=== PATIENT | female | born 1955 | race Caucasian/White ===

== ENCOUNTER 2017-02-10 01:23 | Inpatient (IN) ==
[2017-01-27 08:33] LABS: HEMOGLOBIN 13.5 g/dL (12.0-16.0); MANUAL DIFF NEEDED? NO
[2017-01-27 08:36] LABS: BILIRUBIN URINE NEGATIVE (NEGATIVE); BLOOD URINE TRACE (NEGATIVE); COLOR YELLOW; GLUCOSE URINE NEGATIVE (NEGATIVE); LEUKOCYTES URINE NEGATIVE (NEGATIVE); NITRITE URINE NEGATIVE (NEGATIVE); PH URINE 5.5; PROTEIN URINE NEGATIVE (NEGATIVE); SP GRAVITY URINE 1.018; TURBIDITY URINE CLEAR (CLEAR); URINE MICRO REVIEW NEEDED? NO; URINE SOURCE CLEAN CATCH; UROBILINOGEN URINE NORMAL (NORMAL)
[2017-01-27 08:38] LABS: UR EPITHELIAL CELLS <10 /HPF (<10); URINE BACTERIA NEGATIVE /HPF; URINE RBC <10 /HPF (<10); URINE WBC <10 /HPF (<10)
[2017-01-27 09:01] LABS: INR 0.92; PROTIME 9.6 Seconds (9.2-11.7); PTT 28.2 Seconds (22.0-36.0)
[2017-01-27 09:13] LABS: POTASSIUM 4.9 mmol/L (3.5-5.1)
--- NOTE | 2017-01-27 09:38 | EKG Report ---
Test Performed on : 01/27/2017 07:33:18 AM Test Reason : JOINT CAMP Blood Pressure : / mmHG Vent. Rate : 060 BPM Atrial Rate : 060 BPM P-R Int : 136 ms QRS Dur : 080 ms QT Int : 398 ms P-R-T Axes : 017 -08 001 degrees QTc Int : 398 ms Normal sinus rhythm. Normal ECG When compared with ECG of 20-JUL-2014 21:57, No significant change was found Confirmed by Claudia DE LA CRUZ, Tulio Pemberton ([id number]) on 01/27/2017 10:07:14 AM
[2017-01-27 11:08] LABS: BASO% 0.9 % (0.0-0.8); EOS# 0.09 X1000 (0.0-0.7); EOS% 1.7 % (0.0-10.0); HEMATOCRIT 39.9 % (37.0-47.0); IMM GRAN# 0.02 X1000 (0.0-0.04); IMM GRAN% 0.4 % (0.0-0.5); LYMPH# 2.14 X1000 (1.2-3.4); LYMPH% 40.5 % (20.5-51.1); MCH 29.3 PG (27-31); MCHC 33.8 g/dL (33-37); MCV 86.6 FL (81-99); MONO# 0.56 X1000 (0.11-0.59); MONO% 10.6 % (1.7-9.3); MPV 9.6 FL (7.4-10.4); NEUT% 45.9 % (42.2-75.2); PLT 274 X1000 (130-400); RBC 4.61 XMIL (4.2-5.4)
[2017-02-10] MEDS ORDERED: COLACE ONE (09:43)
[2017-02-10] MEDS ORDERED: PEPCID ONE (09:43)
[2017-02-10] MEDS ORDERED: REGLAN ONE (09:44)
[2017-02-10] MEDS ORDERED: LYRICA ONE (09:44)
[2017-02-10] MEDS ORDERED: CELEBREX ONE (09:44)
[2017-02-10] MEDS ORDERED: LR 1,000 ML ONE (09:44)
[2017-02-10] MEDS ORDERED: KEFZOL 2 GM/D5W 2 GM/50 ML IVPB ONE (09:45)
[2017-02-10] MEDS ORDERED: VERSED ONE ×2 (09:59→10:35)
[2017-02-10] MEDS ORDERED: DIPRIVAN 1% ONE ×2 (10:00→10:33)
[2017-02-10] MEDS ORDERED: FENTANYL ONE (10:00)
[2017-02-10] MEDS ORDERED: DURAMORPH ONE (10:16)
[2017-02-10] MEDS ORDERED: TORADOL ONE (10:16)
[2017-02-10] MEDS ORDERED: VANCOMYCIN ONE (10:17)
[2017-02-10] MEDS ORDERED: EXPAREL 1.3% ONE (10:17)
[2017-02-10] MEDS ORDERED: MARCAINE 0.25% PF ONE (10:17)
[2017-02-10] MEDS ORDERED: SODIUM CHLORIDE 0.9% ONE (10:17)
[2017-02-10] MEDS ORDERED: NEOSPORIN G.U. IRRIGANT ONE (10:17)
[2017-02-10] MEDS ORDERED: OFIRMEV 1000 MG/ISOTONIC SOLN 1,000 MG/100 ML BOTTLE ONE (10:42)
[2017-02-10] MEDS ORDERED: DECADRON ONE (10:42)
[2017-02-10] MEDS ORDERED: ZOFRAN ONE (10:42)
[2017-02-10] MEDS ORDERED: CYKLOKAPRON 1,000 MG/NS 1,000 MG/100 ML IVPB ONE ×2 (10:46)
[2017-02-10 11:44] LABS: URINE MICRO REVIEW NEEDED? NO; URINE SOURCE CATH
[2017-02-10 11:49] LABS: BILIRUBIN URINE NEGATIVE (NEGATIVE); BLOOD URINE NEGATIVE (NEGATIVE); COLOR YELLOW; GLUCOSE URINE NEGATIVE (NEGATIVE); LEUKOCYTES URINE NEGATIVE (NEGATIVE); NITRITE URINE NEGATIVE (NEGATIVE); PH URINE 5.5; PROTEIN URINE NEGATIVE (NEGATIVE); SP GRAVITY URINE 1.017; TURBIDITY URINE CLEAR (CLEAR); UROBILINOGEN URINE NORMAL (NORMAL)
[2017-02-10 11:50] LABS: UR EPITHELIAL CELLS <10 /HPF (<10); URINE BACTERIA NEGATIVE /HPF; URINE RBC <10 /HPF (<10); URINE WBC <10 /HPF (<10)
[2017-02-10] MEDS ORDERED: NS 1,000 ML ONE (12:55)
--- NOTE | 2017-02-10 13:24 | Diag Imaging Result Doc PS360 ---
EXAM: KNEE 1-2 VIEWS-LEFT HISTORY: post op tka TECHNIQUE: Left knee two views COMMENT: There is been a total knee arthroplasty. There is appropriate alignment. IMPRESSION: Postsurgical change. Electronically signed by Rafal Davila 02/10/2017 1:22 PM
[2017-02-10] MEDS ORDERED: MORPHINE IV PRN (14:45)
[2017-02-10] MEDS ORDERED: MILK OF MAGNESIA PO PRN (14:45)
[2017-02-10] MEDS ORDERED: ZOFRAN IV PRN (14:45)
[2017-02-10] MEDS: XANAX PO SCH (15:18)
[2017-02-10] MEDS: GLUCOPHAGE PO SCH ×2 (15:18→17:43)
[2017-02-10] MEDS: PRINZIDE 20/12.5MG PO SCH (15:18)
[2017-02-10] MEDS: NS 1,000 ML IV SCH (15:20)
[2017-02-10] MEDS: OXY IR PO PRN (16:38)
[2017-02-10] MEDS: TYLENOL PO SCH (17:43)
[2017-02-10] MEDS: KEFZOL 1 GM/D5W 1 GM/50 ML IVPB IV SCH (17:44)
--- NOTE | 2017-02-10 18:38 | OPERATIVE NOTE ---
PROCEDURE DATE: 02/10/2017 PREOPERATIVE DIAGNOSIS: Degenerative osteoarthritis left knee. POSTOPERATIVE DIAGNOSIS: Degenerative osteoarthritis left knee. PROCEDURE: Left total knee arthroplasty with DePuy Attune size 5 narrow posterior stabilized femur, size 5 tibial tray, a 5 mm rotating platform tibial insert, and a 32 mm medialized anatomic patella. SURGEON: Bandar Jane MD. AERONAUTICAL DESIGN ENGINEER: Jazmin Hernandez. SECOND BONER MEAT: Mikey Saravia RN. ANESTHESIA: Spinal. IV FLUIDS: 2200 mL lactated Ringer's. ESTIMATED BLOOD LOSS: 50 mL. TOURNIQUET TIME: 80 minutes at 350 mmHg. INDICATIONS: The patient is a pleasant 61-year-old female with chronic history of worsening pain and discomfort over the left knee. Continued pain and discomfort despite appropriate nonoperative treatment. Recommendation to proceed with left total knee arthroplasty was offered. Risks and benefits of surgery were explained, including the risks of anesthesia, , bleeding, infection, failure to relieve pain, postoperative stiffness, nerve injury, blood clots, and other imponderables. All questions were answered. Patient and family wished to proceed with surgery. DETAILS OF OPERATION: The patient was taken to the operating room and underwent spinal anesthesia. After adequate anesthesia was obtained, left lower extremity was prepped and draped in usual sterile fashion. An Esmarch was used to exsanguinate the left lower extremity and the tourniquet was inflated to 350 mmHg. A standard anterior incision was made with a skin knife. Medial and lateral skin envelopes were developed. Standard medial parapatellar arthrotomy was then performed. Patella fat pad was excised. Retractors were then placed. Approximately 1 cm anterior to the PCL insertion starting reamer was passed. Intramedullary guide with a distal cutting block was pinned in position. Distal femoral cut was then performed in a standard fashion. The sizing block was placed and measured size 5. Corresponding pins were placed. A size 5 cutting block was placed in position. Anterior, posterior, chamfer cuts were then made. Attention then turned to the proximal tibia where further resection of the ACL and PCL was performed. Using the extramedullary guide, the proximal tibia cutting block was pinned in position. Proximal tibia was then resected. The medial and lateral menisci were excised. The curved osteotome was used to remove the posterior osteophytes off the distal femur. A spacer block was placed and had good soft tissue balance in both flexion and extension. Attention was turned back to the proximal tibia where the size 5 tray appeared to be the correct size and was pinned in position. This was followed by a central reamer and a fin punch. A box cutting guide was then placed on the distal femur and a box cut was performed. A trial 5 component was then placed and the femoral component placed, and 2 lug holes were drilled. The trial tibial insert was then placed. Attention then turned to the patella and was everted and resected in a standard fashion. A size 32 appeared to be the correct size. Corresponding holes were drilled and a trial patella component was placed and had good patellofemoral tracking. The trial components were then removed. Copious irrigation was then performed with antibiotic irrigation. The vancomycin was mixed and cemented on back table. Sequential cementing was then performed, first with the tibial tray and excess cement with a Emblem followed by the femoral component and excess cement was removed with a Emblem followed by trial tibial insert in full extension. Axial loading was maintained while cement cured. After cement had cured, peripheral cement was removed with small osteotome. The 5 mm rotating platform tibial insert appeared to be the correct size. This trial was removed. Exparel was placed in deep posterior capsule. Copious irrigation then performed once again with antibiotic pulsatile lavage. This was followed by a 5 mm rotating platform tibial insert, and was then placed. The knee was then carried through range of motion. Good range of motion good stability and good patellofemoral tracking. A 1/8th Hemovac drain was placed and was not sewn in. Copious irrigation was then done once again with antibiotic pulsatile lavage. A #1 Vicryl was used to create arthrotomy followed by 2-0 Vicryl repaired the subcutaneous tissue and skin sera. Adaptic, sterile 4 x 4, ABD pad, Webril and a cryo unit, left cryo unit, and Javy wrap to the left lower extremity. Patient tolerated the procedure well with no complications. She was transferred to the recovery room in stable condition. cc: Bandar Jane MD
[2017-02-10] MEDS: COLACE PO SCH (21:19)
[2017-02-11] MEDS: TYLENOL PO SCH ×3 (00:58→11:33)
[2017-02-11] MEDS: OXY IR PO PRN ×3 (00:58→11:31)
[2017-02-11] MEDS: NS 1,000 ML IV SCH (02:29)
[2017-02-11] MEDS: KEFZOL 1 GM/D5W 1 GM/50 ML IVPB IV SCH (02:29)
[2017-02-11] MEDS ORDERED: XARELTO PO SCH (06:00)
[2017-02-11 06:13] LABS: HEMATOCRIT 35.4 % (37.0-47.0); HEMOGLOBIN 12.2 g/dL (12.0-16.0)
--- NOTE | 2017-02-11 06:31 | PROGRESS NOTE ---
DATE: 02/11/2017 SUBJECTIVE: Patient is a 61-year-old female, who is 1 day status post left total knee arthroplasty. Patient is currently resting comfortably and has no complaints. OBJECTIVE: The patient's left lower extremity, her dressing is intact appeared. Calf is soft. She is neurovascularly distally. She has active dorsiflexion and plantar flexion. LABORATORY DATA: Her hemoglobin and hematocrit are pending. IMPRESSION: Postoperative day #1 status post left total knee arthroplasty. PLAN: At this point, will discontinue her drain and Beaulieu. We will also Hep-Lock her IV. We will change her dressing. We will mobilize physical therapy. Plan on discharging home. Patient will proceed with outpatient physical therapy. cc: Bandar Jane MD
[2017-02-11 06:39] LABS: CALCIUM 8.3 mg/dL (8.8-10.2)
[2017-02-11] MEDS: GLUCOPHAGE PO SCH (08:36)
[2017-02-11] MEDS: COLACE PO SCH (08:36)
[2017-02-11] MEDS: PRINZIDE 20/12.5MG PO SCH (08:36)
[2017-02-11] MEDS: XANAX PO SCH (08:36)
[2017-02-11] MEDS ORDERED: PERIDEX MT SCH (09:00)
[2017-02-11] MEDS ORDERED: PEPCID PO SCH (09:00)
[2017-02-11 15:14] VITALS: BP 140/60
== END 2017-02-11 12:53 | disposition home or self-care (01) ==
LOC: SURHOLD 01:23 → 4N 13:27
PROVIDERS: ADMIT Orthopaedic Surgery Adult Reconstructive Orthopaedic Surgery; ATTEND Orthopaedic Surgery Adult Reconstructive Orthopaedic Surgery